=== PATIENT | female | born 1950 | race Caucasian/White ===

== ENCOUNTER → 2021-10-17 | Outpatient (CLI) | payer BC | END | disposition home or self-care (01) | LOC: RAH 11:06 | PROVIDERS: ATTEND Neurological Surgery | DX: I73.9 Peripheral vascular disease, unspecified (principal) | CPT/HCPCS: 93925 ==

== ENCOUNTER 2021-10-31 05:48 | Day surgery (SDC) | payer BC, MEDICARE ==
[2021-10-30 12:28] VITALS: BP 100/52
[~2021-10-31] VITALS: Ht 154.9 cm; Wt 59.2 kg
[2021-10-31] VITALS (12 sets, daily range): BP systolic 97–145; BP diastolic 52–72
[~2021-10-31 05:48] MED LIST: ALPR0.5T8 PO; CETI-89 PO; MELA3TAB41 PO; PREG150C PO
[2021-10-31] MEDS ORDERED: LACTATED RINGERS 1000ML 1,000 ML IV ONE (06:34)
[2021-10-31] MEDS: CLINDAMYCIN IVPB 900MG/50ML 50 ML IV SCH ×2 (06:39→07:30)
[2021-10-31 06:51] LABS: INR 0.93 (0.85-1.15); PROTHROMBIN TIME 9.8 SEC (9.6-11.6)
[2021-10-31] MEDS ORDERED: SODIUM BICARB [NEONATAL] 4.2% 10ML SYG ONE (06:57)
[2021-10-31] MEDS ORDERED: BUPIVACAINE/PF 0.25% 30ML VIAL IJ ONE (06:57)
[2021-10-31] MEDS ORDERED: FENTANYL CITRATE PF 50 MCG/1 ML 2ML VIAL ONE ×2 (07:14→07:52)
[2021-10-31] MEDS ORDERED: MIDAZOLAM HCL 1 MG/ML 2ML VIAL ONE (07:14)
[2021-10-31] MEDS ORDERED: IOPAMIDOL 10 ML VIAL ONE (07:37)
[2021-10-31] MEDS ORDERED: ONDANSETRON 4MG INJ ONE (07:53)
[2021-10-31] MEDS ORDERED: PHENYLEPHRINE HCL 10 MG/ML 1ML VIAL IV ONE ×2 (07:54→07:55)
== END 2021-10-31 09:30 | disposition home or self-care (01) ==
LOC: DAH 05:48
PROVIDERS: ATTEND Neurological Surgery
DX: M53.3 Sacrococcygeal disorders, not elsewhere classified (principal); J45.909 Unspecified asthma, uncomplicated; K21.9 Gastro-esophageal reflux disease without esophagitis; Z79.01 Long term (current) use of anticoagulants; Z88.0 Allergy status to penicillin; Z79.899 Other long term (current) drug therapy
CPT/HCPCS: 27096; 36415; 72202; 85610; 87635; A4215; A4221; A4222; A4223; A4663; C9803; J1030; J2250; J2370 ×2; J2405; J3010 ×2; J3490 ×3; J7120; Q9966

== ENCOUNTER → 2022-01-14 | Outpatient (CLI) | payer BC | END | disposition home or self-care (01) | LOC: RAH 11:38 | PROVIDERS: ATTEND Family Medicine | DX: E04.1 Nontoxic single thyroid nodule (principal); M47.816 Spondylosis without myelopathy or radiculopathy, lumbar region; M54.51 Vertebrogenic low back pain; M51.36 Other intervertebral disc degeneration, lumbar region; M41.86 Other forms of scoliosis, lumbar region; Z88.0 Allergy status to penicillin | CPT/HCPCS: 72114; 76536 ==

== ENCOUNTER → 2022-02-11 | Outpatient (CLI) | payer BC | END | disposition home or self-care (01) | LOC: RAH 15:07 | PROVIDERS: ATTEND Physical Medicine & Rehabilitation | DX: M51.36 Other intervertebral disc degeneration, lumbar region (principal); M47.816 Spondylosis without myelopathy or radiculopathy, lumbar region; M54.50 Low back pain, unspecified; M47.16 Other spondylosis with myelopathy, lumbar region; M48.061 Spinal stenosis, lumbar region without neurogenic claudication; M41.86 Other forms of scoliosis, lumbar region; Z88.0 Allergy status to penicillin; Z88.8 Allergy status to other drugs, medicaments and biological substances | CPT/HCPCS: 72131 ==

== ENCOUNTER → 2022-02-25 | Outpatient (CLI) | payer BC | END | disposition home or self-care (01) | LOC: RAH 12:57 | PROVIDERS: ATTEND Physical Medicine & Rehabilitation | DX: M41.25 Other idiopathic scoliosis, thoracolumbar region (principal); M43.16 Spondylolisthesis, lumbar region; M47.816 Spondylosis without myelopathy or radiculopathy, lumbar region; M54.51 Vertebrogenic low back pain; Z88.0 Allergy status to penicillin; Z88.8 Allergy status to other drugs, medicaments and biological substances | CPT/HCPCS: 78306; A9503 ==

== ENCOUNTER → 2023-04-28 | Outpatient (CLI) | payer BC | END | disposition home or self-care (01) | LOC: RAH 14:33 | PROVIDERS: ATTEND Family Medicine | DX: M79.601 Pain in right arm (principal); Z91.89 Other specified personal risk factors, not elsewhere classified | CPT/HCPCS: 73090 ==

== ENCOUNTER → 2023-11-14 | Outpatient (CLI) | payer OTHER | END | disposition home or self-care (01) | LOC: RAH 10:58 | PROVIDERS: ATTEND Family Medicine | DX: Z13.6 Encounter for screening for cardiovascular disorders (principal) | CPT/HCPCS: 75571 ==

== ENCOUNTER → 2024-06-21 | Outpatient (CLI) | payer MEDICARE ==
--- NOTE | 2024-06-21 15:34 | HMCIMG ---
CHEST 2VWS HISTORY: Shortness of breath COMPARISON: None FINDINGS: Frontal and lateral projections of the chest were obtained. There is no acute pulmonary infiltrates or failure. The heart is borderline enlarged. There is scoliosis. No evidence of aortic calcification is seen. Degenerative changes are seen of the thoracolumbar spine. IMPRESSION: 1. No acute pulmonary infiltrates.
== END | disposition home or self-care (01) ==
LOC: RAH 14:37
PROVIDERS: ATTEND Family Medicine
DX: R06.02 Shortness of breath (principal); M47.815 Spondylosis without myelopathy or radiculopathy, thoracolumbar region; M41.80 Other forms of scoliosis, site unspecified
CPT/HCPCS: 71046

== ENCOUNTER → 2025-02-08 | Outpatient (CLI) | payer MEDICARE ==
--- NOTE | 2025-02-09 05:36 | HMCIMG ---
EXAM: CR Lumbar Spine, 5 views. CLINICAL HISTORY: Pain. COMPARISON: None provided. FINDINGS: Scoliosis of lumbar spine is noted with convexity toward left. No acute fracture or dislocation. Grade I anterolisthesis of L5 over S1 vertebra is noted. L4-L5 and L5-S1 intervertebral disc spaces are reduced. Osteophytic lipping of articular margin is noted. Generalized osteopenia is seen. Normal vertebral body heights. Soft tissues are within normal limits. IMPRESSION: Moderate lumbar spondylosis. No acute fracture or dislocation. Scoliosis. /[place]
== END | disposition home or self-care (01) ==
LOC: RAH 11:41
PROVIDERS: ATTEND Physical Medicine & Rehabilitation
DX: M47.26 Other spondylosis with radiculopathy, lumbar region (principal); M41.86 Other forms of scoliosis, lumbar region; M43.17 Spondylolisthesis, lumbosacral region; M85.88 Other specified disorders of bone density and structure, other site
CPT/HCPCS: 72114

== ENCOUNTER → 2025-02-09 | Outpatient (CLI) | payer MEDICARE ==
--- NOTE | 2025-02-10 11:34 | HMCIMG ---
EXAM: MR Lumbar Spine Without Intravenous Contrast. CLINICAL HISTORY: Radiculopathy. TECHNIQUE: Magnetic resonance images of the lumbar spine in multiple planes. CONTRAST: None. COMPARISON: CT dated 02/11/22. FINDINGS: For this examination, spinal levels were labeled assuming five [id number], lumbar-type vertebrae, with the inferior labeled L5. No acute fracture. Severe S-shaped thoracolumbar scoliosis. Mild degenerative anterolisthesis of L4 over L5 and L5 over S1. Exaggerated lumbar lordosis. Multilevel spondylosis is evident by marginal osteophytes and facet joint arthropathy. Multilevel disc desiccation and degenerative disc height reduction are noted, more pronounced at the L5-S1 level. Mild facet joint synovitis at the L5-S1 level. Normal vertebral body heights. Modic type I changes in the anterior corners of the contiguous endplates at the T10-T11 level. Conus medullaris terminates at the T12-L1 level. No abnormal epidural masses. The surrounding soft tissues are unremarkable. Individual spinal levels are described as follows: T12-L1: 4 mm disc osteophyte complex bulge causing mild indentation on the anterior thecal sac. No neural foraminal or lateral recess stenosis. L1-L2: 4 mm disc osteophyte complex bulge causing mild indentation on the anterior thecal sac. No neural foraminal or lateral recess stenosis. L2-L3: No disc bulge or herniation. No neural foraminal, lateral recess, or spinal canal stenosis. L3-L4: 3 mm disc osteophyte complex bulge causing mild indentation on the anterior thecal sac. No neural foraminal or lateral recess stenosis. L4-L5: 4 mm disc osteophyte complex bulge causing mild indentation on the anterior thecal sac. No neural foraminal or lateral recess stenosis. L5-S1: 4 mm disc osteophyte complex bulge and facet joint arthropathy causing mild indentation on the anterior thecal sac and mild bilateral foraminal narrowing. No lateral recess stenosis. IMPRESSION: Severe S-shaped thoracolumbar scoliosis. Mild degenerative anterolisthesis of L4 over L5 and L5 over S1. Exaggerated lumbar lordosis. Mild to moderate multilevel spondylosis and degenerative disc changes. Mild facet joint synovitis at the L5-S1 level. Modic type I changes in the anterior corners of the contiguous endplates at the T10-T11 level. Mild indentation on the anterior thecal sac at the T12-L1, L1-L2, L3-L4, and L4-L5 levels. Mild indentation on the anterior thecal sac and mild bilateral foraminal narrowing at the L5-S1 level. No significant interval changes. /[place]
== END | disposition home or self-care (01) ==
LOC: RAH 14:00
PROVIDERS: ATTEND Physical Medicine & Rehabilitation
DX: M47.816 Spondylosis without myelopathy or radiculopathy, lumbar region (principal); M54.16 Radiculopathy, lumbar region; M54.51 Vertebrogenic low back pain; M43.17 Spondylolisthesis, lumbosacral region; M65.88 Other synovitis and tenosynovitis, other site; M48.07 Spinal stenosis, lumbosacral region; M51.379 Other intervertebral disc degeneration, lumbosacral region without mention of lumbar back pain or lower extremity pain; M25.78 Osteophyte, vertebrae; M41.85 Other forms of scoliosis, thoracolumbar region
CPT/HCPCS: 72148

== ENCOUNTER 2025-04-21 16:24 | Emergency (ER) | payer MEDICARE ==
[~2025-04-21] VITALS: Ht 152.4 cm; Wt 59.9 kg
--- NOTE | 2025-04-21 16:30 | NUR ---
CAT BITE OCCURED AT [address] [address]
[2025-04-21 16:34] VITALS: BP 148/95; PULSE 90; RESP 18; TEMP 98.3; O2SAT 99
--- NOTE | 2025-04-21 16:42 | NUR ---
GLENNA GARCIA CONTACTED, STATED THEY WILL CONTACT PT WHEN THEY HAVE AN OFFICER AVAILABLE
[2025-04-21] MEDS ORDERED: DOXY100T2 PO (16:45)
[2025-04-21] MEDS ORDERED: METR-172 PO (16:45)
[2025-04-21] MEDS ORDERED: BACI30OI6 TP (16:45)
--- NOTE | 2025-04-21 16:46 | ERN ---
ED Note History of Present Illness Stated Complaint: CAT BITE TO BILATERAL HANDS Chief Complaint: Animal Bite Time Seen by MD: 16:29 Time Seen by Midlevel: 16:33 Dictation: 74-year-old female with a history of fibromyalgia coming in with complaints of bites to bilateral hands from kittens. Patient states she is up-to-date for tetanus last year due to another cat bite. Patient denies seeing any fully met the mouth or ill kidneys, states they were acting normally. Allergies: Coded Allergies: Sulfa (Sulfonamide Antibiotics) (Unverified Allergy, Severe, SWELLING, 10/31/21) Penicillins (Verified Allergy, Unknown, 10/30/21) Home Meds Reported Medications Melatonin (Melatonin) 3 Mg Tablet, 3 MG PO HS, TAB 10/30/21 Cetirizine HCl (Zyrtec) 10 Mg Tablet, 10 MG PO AD PRN for ALLERGIES, TAB 10/30/21 Pregabalin (Lyrica) 150 Mg Capsule, 150 MG PO BID, CAP 10/30/21 Alprazolam (Alprazolam) 0.5 Mg Tablet, 0.5 MG PO BID, TAB 10/30/21 Past Medical History Past Medical History: Fibromyalgia Surgical History: Other Surgical History Other: KNEE Review of System Dictation Constitutional: Negative for fever,chills, and weight loss Eyes: Negative for injury, pain,redness, and discharge ENT: Negative for injury,pain or swelling Cardiovascular: Negative for chest pain, palpitations, and edema Respiratory: Negative for shortness of breath, cough, and wheezing, Abdomen/GI: Negative for abdominal pain, nausea, vomiting, diarrhea, and constipation Back: Negative for injury and pain : Negative for injury, bleeding and discharge MS/Extremity: Negative for injury and deformity Skin: Negative for rash, and discoloration, cat bite Neuro: Negative for headache, weakness, numbness, tingling, and seizure Psych: Negative for suicide ideation, homicidal ideation, and hallucinations Review of Systems: was completed Initial Vital Sign VS Vital Signs Date Time Temp Pulse Resp B/P (MAP) Pulse Ox O2 Delivery O2 Flow Rate FiO2 04/21/25 16:25 98.2 90 16 148/95 99 Room Air 0 04/21/25 16:34 21 Physical Exam Dictation General: awake, alert, NAD Head/Face: Normocephalic, atraumatic Eyes: PERRL, EOMI, vision at baseline ENT: oral cavity clear, TMs clear, no signs of infection Neck: Trachea midline, supple, no nuchal rigidity Cardiovascular: RRR, normal S1/S2, No MRGs, no JVD Respiratory: CTAB, no respiratory distress, No rales or wheezes Abdomen: Soft, non-tender, non-distended, normal bowel sounds, no guarding or rebound. Skin: Warm, dry, normal turgor, no rash, there are multiple puncture wounds noted to the right and left hand , on the left hand there is puncture wounds to the index finger and thumb, and on the right there is on the 5th digit. Patient has full range of motion, no swelling, no drainage MS/Extremity: Pulses equal, no cyanosis, neurovascular intact, FROM Neuro: COAx4, GCS 15, strength 5/5, CN 2-12 intact, normal cerebellar exam, normal gait, Psych: Normal behavior, mood, and affect normal ED Course ED Course Vital Signs Date Time Temp Pulse Resp B/P (MAP) Pulse Ox O2 Delivery O2 Flow Rate FiO2 04/21/25 16:34 98.2 90 18 148/95 99 Room Air* 0 21 04/21/25 16:25 98.2 90 16 148/95 99 Room Air 0 Medical Decision Making MDM MDM: 74-year-old female with a history of fibromyalgia coming in with complaints of bites to bilateral hands from kittens. Patient states he was trying to rescue the kittens. Patient states she is up-to-date for tetanus last year due to another cat bite. Patient denies seeing any fully met the mouth or ill kidneys, states they were acting normally. Wound will be irrigated in the emergency room patient will be discharged with bacitracin and Augmentin. Educated follow up with PCP in 1-2 days. Differential diagnosis: Puncture wound, laceration Rationale: Tests considered and ordered secondary to shared decision making include: Previous outside records reviewed: Old ER visits. Risk of complication and/or morbidity or mortality of patient management: None Medications-Per medication reconciliation Need for hospitalization: Patient does not meet criteria for hospitalization. Need for emergency major/minor surgery: No There are no social concerns with this patient. Prescription drug management Prescriptions will include symptomatic care Patient's prior external medical records from other ER visits were reviewed by me as indicated. Prior testing and results from previous visits were reviewed. Prior tests were taken into account with medical decision making and resource utilization, independent historian/historians were used to obtain complete medical history. I independently interpreted the test that were performed, results were reviewed by me and considered findings on radiology if ordered. Medical management and examination interpretation discussions were had by me with other qualified healthcare professionals as indicated for the patient's care. DX & DISP Disposition: Discharge Departure Impression: Primary Impression: Cat bite Condition: Stable Scripts Doxycycline Hyclate (Doxycycline Hyclate) 100 Mg Tablet 1 TAB PO BID for 7 Days, #14 TAB 0 Refills Prov: DARIELA CHACON CNP 04/21/25 Metronidazole (Metronidazole) 500 Mg Tablet 1 TAB PO TID for 7 Days, #14 TAB 0 Refills Prov: DARIELA CHACON CNP 04/21/25 Bacitracin (Bacitracin) 500 Unit/Gram Oint...g. 1 APPL TP BID for 7 Days, #15 GM 0 Refills apply to affected area(s) Prov: DARIELA CHACON CNP 04/21/25 Additional Instructions: In alcohol while on these antibiotics. Follow up with your primary doctor in 1- 2 days. Keep your wounds clean and dry. If you notice any signs of infection return to the hospital. Referrals: DORY JASSO MD (PCP) Time of Disposition: 16:40 I have reviewed the case, and I agree with, Diagnosis and Plan DARIELA CHACON CNP Apr 21, 2025 16:46
--- NOTE | 2025-04-21 16:59 | NUR ---
WOUNDS CLEANED AND IRRIGATED, PT TOLERATED WELL
== END 2025-04-21 17:08 | disposition home or self-care (01) ==
LOC: EDH 16:24
DX: S61.451A Open bite of right hand, initial encounter (principal); S61.452A Open bite of left hand, initial encounter; M79.7 Fibromyalgia; Z88.0 Allergy status to penicillin; Z88.2 Allergy status to sulfonamides; Z79.899 Other long term (current) drug therapy; W55.01XA Bitten by cat, initial encounter; Y93.89 Activity, other specified; Y92.098 Other place in other non-institutional residence as the place of occurrence of the external cause; Y99.8 Other external cause status
CPT/HCPCS: 99283

== ENCOUNTER → 2025-05-16 | Outpatient (CLI) | payer MEDICARE ==
--- NOTE | 2025-05-16 22:47 | HMCIMG ---
STUDY: X-RAY OF THE RIGHT FOOT, 3 VIEWS HISTORY: Right foot pain. TECHNIQUE: Three views of the right foot are submitted for interpretation. COMPARISON: None provided. FINDINGS: Bones and joints: Mild generalized osteopenia is present. Mild degenerative changes are noted in multiple joints of the right foot. A tiny plantar calcaneal spur is identified. There is an abnormal appearance of the talocalcaneal region with suggestion of altered subtalar joint morphology, raising the possibility of talocalcaneal coalition. No acute fracture or dislocation is identified. Soft tissues: Visualized soft tissues are unremarkable without focal swelling, soft tissue gas, or radiopaque foreign body. IMPRESSION: * Mild osteopenia and mild degenerative changes involving multiple joints of the right foot, without acute fracture or dislocation. * Tiny plantar calcaneal spur, which may contribute to plantar heel pain in the appropriate clinical context. 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 /[place]
== END | disposition home or self-care (01) ==
LOC: RAH 10:08
PROVIDERS: ATTEND Family Medicine
DX: M19.071 Primary osteoarthritis, right ankle and foot (principal); M79.671 Pain in right foot; M77.31 Calcaneal spur, right foot; M85.871 Other specified disorders of bone density and structure, right ankle and foot
CPT/HCPCS: 73630